=== PATIENT | female | born 1965 | race Asian ===

== ENCOUNTER 2017-06-25 20:27 | Emergency (ER) | payer BC ==
[2017-06-25] MEDS: IBUPROFEN 800 MG TAB PO (21:55)
[2017-06-25] MEDS: OSELTAMIVIR 75 MG CAP PO (22:17)
== END 2017-06-25 22:20 | disposition home or self-care (01) ==
LOC: FTE 20:27
DX: J10.1 Influenza due to other identified influenza virus with other respiratory manifestations (principal); J32.9 Chronic sinusitis, unspecified; E11.9 Type 2 diabetes mellitus without complications
CPT/HCPCS: 87400; 87880; 99284